=== PATIENT | female | born 1940 | race Caucasian/White ===

== ENCOUNTER 2020-06-27 20:59 | Emergency (ER) | payer OTHER ==
[2020-06-27] MEDS ORDERED: NA CHLORIDE 0.9% 1,000 ML ONE (21:43)
[2020-06-27] MEDS ORDERED: ONDANSETRON 4 MG/2 ML VIAL ONE ×2 (21:43→22:58)
[2020-06-27 22:10] LABS: Absolute Lymphocytes (CBC) 1.1 K/uL (0.7-4.9); Basophils % 0.9 % (0-1.3); Hematocrit 37.8 % (36.0-45.0); MPV 11.1 fL (7.6-11.3); RBC Red Blood Cell Count 4.28 M/uL (3.86-4.86)
[2020-06-27 22:31] LABS: Albumin 3.6 g/dL (3.4-5.0); Bilirubin Direct 0.3 mg/dL (0-0.2); Potassium 4.3 mmol/L (3.5-5.1); Protein, Total 8.9 g/dL (6.4-8.2)
[2020-06-27] MEDS ORDERED: D50W 25 GM/50 ML SYRINGE/VIAL IV ONE (23:13)
[2020-06-28] MEDS ORDERED: CLINDAMYCIN IV 150 MG/ML (4 mL) VIAL ONE ×2 (00:01→00:05)
[2020-06-28] MEDS ORDERED: NA CHLORIDE 0.9% 50 ML IV ONE ×2 (00:01→00:05)
[2020-06-28 00:10] LABS: Urine Blood TRACE (NEG); Urine Glucose NEGATIVE (NEG); Urine Protein NEGATIVE (NEG); Urine pH 6.5 (5.0-7.0)
[2020-06-28 00:30] LABS: Urine Bacteria >50 /HPF (<20); Urine Culture Reflex Order REFLEXED; Urine RBC <5 /HPF (NONE SEEN)
--- NOTE | 2020-06-28 00:35 | EDPHYS ---
Physician Documentation [facility] Name: Radha Kenney Age: 79 yrs Sex: Female : 1940 Arrival Date: 06/27/2020 Time: 21:02 Bed 17 Private MD: ED Physician Jimbo Villanueva HPI: 06/27 22:57 This 79 yrs old Female presents to ER via Wheelchair with complaints of tw4 Nausea/Vomiting/Diarrhea. 22:57 The patient presents to the emergency department with nausea, vomiting. Onset: The tw4 symptoms/episode began/occurred today. Possible causes: unknown. The symptoms are aggravated by nothing. The symptoms are alleviated by nothing. Severity of symptoms: At their worst the symptoms were moderate in the emergency department the symptoms are unchanged. The patient has not experienced similar symptoms in the past. Historical: - Allergies: : trazodone; ea - PMHx: 21:27 Hypertension; ea - Immunization history:: Adult Immunizations up to date. - Social history:: Smoking status: Patient denies any tobacco usage or history of. ROS: 22:57 Constitutional: Negative for fever, chills, and weight loss, Eyes: Negative for injury, tw4 pain, redness, and discharge, Cardiovascular: Negative for chest pain, palpitations, and edema, Respiratory: Negative for shortness of breath, cough, wheezing, and pleuritic chest pain, Back: Negative for injury and pain, MS/Extremity: Negative for injury and deformity, Skin: Negative for injury, rash, and discoloration, Neuro: Negative for headache, weakness, numbness, tingling, and seizure. 22:57 Abdomen/GI: Positive for nausea, vomiting, and diarrhea, nausea, vomiting, diarrhea, Negative for abdominal pain, abdominal cramps, abdominal distension, anorexia, dysphagia, hematemesis, black/tarry stool, rectal pain, rectal bleeding. Exam: 22:57 Constitutional: This is a well developed, well nourished patient who is awake, alert, tw4 and in no acute distress. Head/Face: Normocephalic, atraumatic. Chest/axilla: Normal chest wall appearance and motion. Nontender with no deformity. No lesions are appreciated. Cardiovascular: Regular rate and rhythm with a normal S1 and S2. No gallops, murmurs, or rubs. Normal PMI, no JVD. No pulse deficits. Respiratory: Lungs have equal breath sounds bilaterally, clear to auscultation and percussion. No rales, rhonchi or wheezes noted. No increased work of breathing, no retractions or nasal flaring. 22:57 Back: No spinal tenderness. No costovertebral tenderness. Full range of motion. Skin: Warm, dry with normal turgor. Normal color with no rashes, no lesions, and no evidence of cellulitis. MS/ Extremity: Pulses equal, no cyanosis. Neurovascular intact. Full, normal range of motion. Neuro: Awake and alert, GCS 15, oriented to person, place, time, and situation. Cranial nerves II-XII grossly intact. Motor strength 5/5 in all extremities. Sensory grossly intact. Cerebellar exam normal. Normal gait. 22:57 Abdomen/GI: Inspection: abdomen appears normal, Bowel sounds: diminished, Palpation: moderate abdominal tenderness, in all quadrants. Vital Signs: 21:21 BP 171 / 78; Pulse 66; Resp 19; Temp 97.3; Pulse Ox 100% on 2 lpm NC; Weight 107.5 kg; ea Height 5 ft. (152.40 cm); 22:30 BP 181 / 75; Pulse 63; Resp 19; Pulse Ox 100% ; ea 23:14 BP 158 / 84; Pulse 84; Resp 18; Pulse Ox 99% ; ea 06/28 00:46 BP 169 / 73; Pulse 77; Resp 19; Temp 97.6; Pulse Ox 100% on 2 lpm NC; ea 06/27 21:21 Body Mass Index 46.29 (107.50 kg, 152.40 cm) ea MDM: 06/27 21:21 Patient medically screened. tw4 22:57 Differential diagnosis: Nonspecific abd pain, gastritis, cholecystitis, pancreatitis. tw4 Data reviewed: vital signs, nurses notes. Data interpreted: Pulse oximetry: Interpretation: normal. Counseling: I had a detailed discussion with the patient and/or guardian regarding: the historical points, exam findings, and any diagnostic results supporting the discharge/admit diagnosis, lab results. 06/27 21:26 Order name: Basic Metabolic Panel; Complete Time: 23:35 tw4 06/27 23:44 Interpretation: Normal except: GLUC 67; GFR 60; CA 6.6. tw4 06/27 21:26 Order name: CBC with Diff; Complete Time: 22:34 [facility] 06/27 22:34 Interpretation: Normal except: LYM% 13.0. [facility] 06/27 21:26 Order name: Hepatic Function; Complete Time: 23:35 [facility] 06/27 23:35 Interpretation: Normal except: AST 52; ALK 227; BILID 0.3; TP 8.9; GLOB 5.3; A/G 0.7. [facility] 06/27 21:26 Order name: Lipase; Complete Time: 23:35 [facility] 06/27 23:35 Interpretation: Within normal limits: LIP 268. [facility] 06/27 22:36 Order name: Lactate; Complete Time: 23:35 [facility] 06/27 23:36 Interpretation: Within normal limits: LAC 1.0. [facility] 06/27 23:46 Order name: Urine Microscopic Only [facility] [place] 06/27 21:34 Order name: CT Abd/Pelvis - IV Contrast Only [facility] 06/27 23:46 Order name: Urine Dipstick--Ancillary (enter results) [facility] [place] 06/28 00:32 Order name: Urine Culture [facility] 06/28 00:40 Order name: Glucose, Ancillary Testing [facility] 06/27 21:26 Order name: IV Saline Lock; Complete Time: 22:02 [facility] 06/27 21:26 Order name: Labs collected and sent; Complete Time: 22:02 [facility] 06/27 22:36 Order name: Urine Dipstick-Ancillary (obtain specimen); Complete Time: 23:45 tw4 Administered Medications: 22:02 Drug: Zofran (Ondansetron) 4 mg Route: IVP; Site: right antecubital; ea 22:30 Follow up: Response: No adverse reaction; Nausea is decreased ea 22:02 Drug: NS 0.9% 1000 ml Route: IV; Rate: 1 bolus; Site: right antecubital; ea 23:10 Follow up: Response: No adverse reaction; IV Status: Completed infusion; IV Intake: ea 1000ml 22:49 Drug: Zofran (Ondansetron) 4 mg Route: IVP; Site: right antecubital; ea 23:19 Follow up: Response: No adverse reaction; Nausea is decreased ea 23:14 Drug: D50W 50 ml Route: IVP; Site: right antecubital; ea 06/28 00:29 Follow up: Response: No adverse reaction; Blood sugar is elevated; Blood sugar is ea elevated, 149 06/27 23:59 Drug: Clindamycin 300 mg Route: IVPB; Infused Over: 30 mins; Site: right antecubital; ea 06/28 00:25 Follow up: Response: No adverse reaction; IV Status: Completed infusion; IV Intake: 50mlea 00:44 Drug: Calcium Carbonate 500 mg Route: PO; ea 00:44 Follow up: Response: Medication administered at discharge. ea Disposition: 06/28/20 00:35 Discharged to Home. Impression: Abdominal tenderness, Hypocalcemia, Hypoglycemia, unspecified. - Condition is Stable. - Discharge Instructions: Hypoglycemia, Nausea, Adult, Urinary Tract Infection, Adult, Abdominal Pain, Adult, Clfr-de-Anzb, Hypocalcemia, Adult. - Prescriptions for Zofran 4 mg Oral Tablet - take 1 tablet by ORAL route every 12 hours As needed; 6 tablet. Macrobid 100 mg Oral Capsule - take 1 capsule by ORAL route every 12 hours for 7 days; 14 capsule. - Medication Reconciliation Form, Thank You Letter, Antibiotic Education, Prescription Opioid Use form. - Follow up: Private Physician; When: Upon discharge from the Emergency Department; Reason: Recheck today's complaints, Continuance of care, Re-evaluation by your physician. - Problem is new. - Symptoms have improved. Signatures: Dispatcher [employer] Katie Salas, RN RN Jimbo Womack MD MD tw4 Corrections: (The following items were deleted from the chart) 06/27 23:44 23:35 Normal except: GLUC 67; GFR 60. tw4 tw4 06/28 00:47 00:35 06/28/2020 00:35 Discharged to Home. Impression: Abdominal tenderness; ea Hypocalcemia; Hypoglycemia, unspecified. Condition is Stable. Forms are Medication Reconciliation Form, Thank You Letter, Antibiotic Education, Prescription Opioid Use. Follow up: Private Physician; When: Upon discharge from the Emergency Department; Reason: Recheck today's complaints, Continuance of care, Re-evaluation by your physician. Problem is new. Symptoms have improved. tw4
--- NOTE | 2020-06-28 00:35 | ER ---
Nurse's Notes [facility] Name: Radha Kenney Age: 79 yrs Sex: Female : 1940 Arrival Date: 06/27/2020 Time: 21:02 Bed 17 Private MD: Diagnosis: Abdominal tenderness;Hypocalcemia;Hypoglycemia, unspecified Presentation: 06/27 21:21 Chief complaint: Patient states: Reports she started to have nausea, dry heaving and ea diarrhea. Pt reports she has some abdominal discomfort. Coronavirus screen: At this time, the client does not indicate any symptoms associated with coronavirus-19. Ebola Screen: No symptoms or risks identified at this time. Initial Sepsis Screen: Does the patient meet any 2 criteria? No. Patient's initial sepsis screen is negative. Does the patient have a suspected source of infection? No. Patient's initial sepsis screen is negative. Risk Assessment: Do you want to hurt yourself or someone else? Patient reports no desire to harm self or others. Onset of symptoms was June 27, 2020. 21:21 Method Of Arrival: Wheelchair ea 21:21 Acuity: RADHIKA 3 ea Triage Assessment: :27 General: Appears in no apparent distress. Behavior is appropriate for age. Pain: ea Complains of pain in right upper quadrant and left upper quadrant. Neuro: Level of Consciousness is awake, alert, obeys commands, Oriented to person, place, time, situation. Cardiovascular: Patient's skin is warm and dry. Respiratory: Airway is patent Respiratory effort is even, unlabored, Respiratory pattern is regular, symmetrical. GI: Abdomen is round distended, Reports diarrhea, nausea. Derm: redness noted to luh lower extremities. Historical: - Allergies: :27 trazodone; ea - PMHx: 21:27 Hypertension; ea - Immunization history:: Adult Immunizations up to date. - Social history:: Smoking status: Patient denies any tobacco usage or history of. Screenin:24 Abuse screen: Denies threats or abuse. Nutritional screening: No deficits noted. ea Tuberculosis screening: No symptoms or risk factors identified. Fall Risk None identified. Assessment: 21:27 Reassessment: see triage assessment. ea 22:54 Reassessment: Daughter [id number]. ea 06/28 00:45 Reassessment: Patient and/or family updated on plan of care and expected duration. Pain ea level reassessed. Patient is alert, oriented x 3, equal unlabored respirations, skin warm/dry/pink. Discharge instruction given to patient, verbalized the understanding of instruction. Pt left ED via wheelchair, per ED staff. Pt family awaiting for transportation home. Pt assisted into private vehicle, pt tolerated well. Vital Signs: 06/27 21:21 BP 171 / 78; Pulse 66; Resp 19; Temp 97.3; Pulse Ox 100% on 2 lpm NC; Weight 107.5 kg; ea Height 5 ft. (152.40 cm); 22:30 BP 181 / 75; Pulse 63; Resp 19; Pulse Ox 100% ; ea 23:14 BP 158 / 84; Pulse 84; Resp 18; Pulse Ox 99% ; ea 06/28 00:46 BP 169 / 73; Pulse 77; Resp 19; Temp 97.6; Pulse Ox 100% on 2 lpm NC; ea 06/27 21:21 Body Mass Index 46.29 (107.50 kg, 152.40 cm) ea ED Course: 06/27 21:02 Patient arrived in ED. am2 21:21 Katie Archibald, KEREN is Primary Nurse. ea 21:21 Jimbo Villanueva MD is Attending Physician. tw4 21:24 Triage completed. ea 21:24 Patient has correct armband on for positive identification. Bed in low position. Call ea light in reach. Side rails up X2. 21:24 Arm band placed on right wrist. Patient placed in an exam room, on a stretcher, on ea pulse oximetry. 21:40 Missed attempt(s): 20 gauge in left antecubital area. Bleeding controlled, band aid ds4 applied, catheter tip intact. 21:45 Inserted saline lock: 22 gauge in right antecubital area, using aseptic technique. ea Blood collected. 23:13 CT Abd/Pelvis - IV Contrast Only In Process Unspecified. EDMS 06/28 00:45 No provider procedures requiring assistance completed. IV discontinued, intact, ea bleeding controlled, No redness/swelling at site. Pressure dressing applied. Administered Medications: 06/27 22:02 Drug: Zofran (Ondansetron) 4 mg Route: IVP; Site: right antecubital; ea 22:30 Follow up: Response: No adverse reaction; Nausea is decreased ea 22:02 Drug: NS 0.9% 1000 ml Route: IV; Rate: 1 bolus; Site: right antecubital; ea 23:10 Follow up: Response: No adverse reaction; IV Status: Completed infusion; IV Intake: ea 1000ml 22:49 Drug: Zofran (Ondansetron) 4 mg Route: IVP; Site: right antecubital; ea 23:19 Follow up: Response: No adverse reaction; Nausea is decreased ea 23:14 Drug: D50W 50 ml Route: IVP; Site: right antecubital; ea 06/28 00:29 Follow up: Response: No adverse reaction; Blood sugar is elevated; Blood sugar is ea elevated, 149 06/27 23:59 Drug: Clindamycin 300 mg Route: IVPB; Infused Over: 30 mins; Site: right antecubital; ea 06/28 00:25 Follow up: Response: No adverse reaction; IV Status: Completed infusion; IV Intake: 50mlea 00:44 Drug: Calcium Carbonate 500 mg Route: PO; ea 00:44 Follow up: Response: Medication administered at discharge. ea Intake: 06/27 23:10 IV: 1000ml; Total: 1000ml. ea 06/28 00:25 IV: 50ml; Total: 1050ml. ea Outcome: 00:35 Discharge ordered by . tw4 00:45 Discharged to home via wheelchair, with family. ea 00:45 Condition: stable 00:45 Discharge instructions given to patient, Instructed on discharge instructions, follow up and referral plans. medication usage, Demonstrated understanding of instructions, follow-up care, medications, Prescriptions given X 2. 00:47 Patient left the ED. ea Addendum: 07/01/2020 18:29 Addendum: Culture Results: Positive urine culture. No further action required. Bacteria i w sensitive to prescribed antibiotic. Signatures: Dispatcher [employer] EDKathryn Montes De Oca RN RN iw Swanson, Donovan ds4 Erum Echeverria Elena, RN RN ea Wadley, Terrence, MD MD tw4
[2020-06-28] MEDS ORDERED: CALCIUM CARBONATE 500 MG TAB ONE (00:48)
--- NOTE | 2020-06-28 12:31 | RAD REPORT ---
EXAM DESCRIPTION: CT - Abdomen Pelvis W Contrast - 06/28/2020 5:10 am CLINICAL HISTORY: Abd pain;Nausea / vomiting COMPARISON: None Available. TECHNIQUE: CT of the abdomen and pelvis performed following IV administration of iodinated contras t. Motion artifact. FINDINGS: Lung Bases: Scarring and atelectasis in the visualized lung bases. Motion artifact. Campo ry artery atherosclerosis. Bones: Multilevel endplate spondylosis and facet arthropathy throughout the visualized spine. Mild de generative change of the hips. Abdomen: Liver: The liver has normal size and density. No intrahepatic biliary dilatation. Gallbladder: Prior cholecystectomy. Spleen, Pancreas, and Adrenal Glands: The spleen, pancreas, and adrenal glands are unremarkable. Kidneys: No hydronephrosis or obstructing calculus. Mild renal cortical atrophy. Vasculature: Aortoiliac atherosclerosis. IVC is unremarkable. The portal vein is patent. The proxim al visceral and renal arteries are patent. Stomach: The stomach and duodenum have normal course. Other: No free intraperitoneal air. No free fluid or lymphadenopathy. Small fat-containing umbili chrissie hernia. Pelvis: Bladder: Urinary bladder is unremarkable. Bowel: No dilated loops of large or small bowel. Scattered diverticula of the colon. Appendix: Appendicolith within an otherwise normal-appearing appendix Pelvis: Uterus is not enlarged. 3.6 cm left ovarian cyst. IMPRESSION: 1. No acute inflammatory or obstructive process identified. 2. Diverticulosis without evidence of acute diverticulitis. 3. 3.6 cm benign appearing left ovarian cyst. Recommend prompt follow-up with pelvic US. Reference: J Am Nicole Radiol 2013;10:675-681 This exam was performed according to our departmental dose-optimization program, which includes autom ated exposure control, adjustment of the mA and/or kV according to patient size and/or use of iterati ve reconstruction technique. Electronically signed by: Estrada Evans 06/27/2020 11:24 PM CDT Due to temporary technical issues with the PACS/Fluency reporting system, reports are being signed by the in house radiologist without review as a courtesy to ensure prompt reporting. The interpreting r adiologist is fully responsible for the content of the report.
[2020-06-28 20:11] VITALS: BP 169/73; TEMP 97.6; O2SAT 100
== END 2020-06-28 00:47 | disposition home or self-care (01) ==
LOC: ER 20:59
DX: E83.51 Hypocalcemia (principal); E16.2 Hypoglycemia, unspecified; I10 Essential (primary) hypertension; Z88.5 Allergy status to narcotic agent
CPT/HCPCS: 96365; 96361; 87088; 85025; 87086; 80048; 36415; 82947; 80076; 83605; 87077; 87186; 83690; 74177; 96375; 99284; Q9967; J7030; J2405 ×2; 81003; 81015

== ENCOUNTER 2020-07-04 19:47 | Emergency (ER) | payer OTHER ==
[2020-07-04] MEDS ORDERED: NA CHLORIDE 0.9% 500 ML ONE (21:43)
[2020-07-04] MEDS ORDERED: ONDANSETRON 4 MG/2 ML VIAL ONE (21:43)
[2020-07-04 22:48] LABS: Albumin 3.3 g/dL (3.4-5.0); Bilirubin Direct 0.2 mg/dL (0-0.2); Bilirubin Total 0.9 mg/dL (0.2-1.0); Potassium 5.1 mmol/L (3.5-5.1); Protein, Total 8.6 g/dL (6.4-8.2)
--- NOTE | 2020-07-05 00:40 | ER ---
Nurse's Notes [facility] Name: Radha Kenney Age: 79 yrs Sex: Female : 1940 Arrival Date: 07/04/2020 Time: 19:51 Bed 14 Private MD: Diagnosis: Diarrhea, unspecified;Hypocalcemia;Adverse effect of other systemic antibiotics Presentation: 07/04 20:06 Chief complaint: Patient states: Abdominal pain with N/V/D for 2 days. No fever. ll1 Coronavirus screen: Client denies travel out of the [place] in the last 14 days. At this time, the client does not indicate any symptoms associated with coronavirus-19. Ebola Screen: Patient denies travel to an Ebola-affected area in the 21 days before illness onset. Initial Sepsis Screen: Does the patient meet any 2 criteria?. Risk Assessment: Do you want to hurt yourself or someone else? Patient reports no desire to harm self or others. Onset of symptoms was July 03, 2020. 20:06 Method Of Arrival: Wheelchair ll1 20:06 Acuity: RADHIKA 3 ll1 21:00 Initial Sepsis Screen: Does the patient have a suspected source of infection? No. wh Patient's initial sepsis screen is negative. Triage Assessment: 20:06 General: Appears uncomfortable, Behavior is calm, cooperative. Pain: Complains of pain ll1 in abdomen Quality of pain is described as aching, crampy, Pain began 2-3 days ago. EENT: No deficits noted. Neuro: No deficits noted. Cardiovascular: No deficits noted. Respiratory: Denies shortness of breath Wears O2 2L NC all the time for COPD. GI: Abdomen is round Bowel sounds present X 4 quads. Reports lower abdominal pain, upper abdominal pain, cramping, diarrhea, nausea, vomiting. Historical: - Allergies: 20:10 Trazodone; ll1 - PMHx: 20:10 Hypertension; COPD; High Cholesterol; ll1 - PSHx: 20:10 R shoulder replacement/r arm fracture; ll1 - Immunization history:: Flu vaccine is up to date. - Social history:: Smoking status: Patient denies any tobacco usage or history of. Patient/guardian denies using alcohol, street drugs. - Family history:: not pertinent. - Hospitalizations: : No recent hospitalization is reported. Screenin:00 Abuse screen: Denies threats or abuse. Denies injuries from another. Nutritional wh screening: No deficits noted. Tuberculosis screening: No symptoms or risk factors identified. Fall Risk None identified. Assessment: 21:05 General: Appears in no apparent distress. Behavior is calm, cooperative, appropriate wh for age. Pain: Denies pain. Neuro: Level of Consciousness is awake, alert, obeys commands, Oriented to person, place, time, situation, Appropriate for age. Cardiovascular: Heart tones S1 S2. Respiratory: Airway is patent Respiratory effort is even, unlabored, Respiratory pattern is regular, symmetrical, Breath sounds are diminished bilaterally. GI: Abdomen is round non-distended, Bowel sounds present X 4 quads. Abd is soft and non tender X 4 quads. Reports nausea, vomiting. : No signs and/or symptoms were reported regarding the genitourinary system. EENT: No signs and/or symptoms were reported regarding the EENT system. Derm: Skin is intact, Skin is pink, warm \T\ dry. Musculoskeletal: Circulation, motion, and sensation intact. 21:30 Reassessment: Unable to start Iv Charge Nurse notified at bedside attempting Iv wh Insertion. 22:25 Reassessment: hand former at bedside attempting Iv insertion. 22:30 Reassessment: Patient appears in no apparent distress at this time. No changes from previously documented assessment. Patient and/or family updated on plan of care and expected duration. Pain level reassessed. Patient is alert, oriented x 3, equal unlabored respirations, skin warm/dry/pink. 07/05 00:15 Reassessment: Patient appears in no apparent distress at this time. Patient and/or family updated on plan of care and expected duration. Pain level reassessed. Patient is alert, oriented x 3, equal unlabored respirations, skin warm/dry/pink. Patient states feeling better. Patient states symptoms have improved. Vital Signs: 07/04 20:06 BP 125 / 54; Pulse 63; Resp 20; Temp 98.0; Pulse Ox 92% on 2 lpm NC; Weight 105.23 kg; ll1 Height 5 ft. 0 in. (152.40 cm); Pain 7/10; 21:30 BP 153 / 74; Pulse 78; Resp 20; Pulse Ox 95% on 2 lpm NC; wh 23:00 BP 142 / 66; Pulse 69; Resp 20; Pulse Ox 95% on 2 lpm NC; 07/05 00:30 BP 156 / 66; Pulse 75; Resp 18; Pulse Ox 97% on 2 lpm NC; 07/04 20:06 Body Mass Index 45.31 (105.23 kg, 152.40 cm) ll1 ED Course: 07/04 19:51 Patient arrived in ED. cf2 20:06 Arm band placed on. ll1 20:09 Triage completed. 1 20:46 Pedro Barba MD is Attending Physician. rn 20:47 Reji Valiente is Primary Nurse. 21:00 Patient has correct armband on for positive identification. Placed in gown. Bed in low wh position. Call light in reach. Side rails up X 1. Pulse ox on. NIBP on. 21:25 Missed attempt(s): 22 gauge in right antecubital area. 22:25 Inserted saline lock: 22 gauge in right upper arm, using aseptic technique. By House [facility] [place]. 23:54 CT Abd/Pelvis - IV Contrast Only In Process Unspecified. EDMS 07/05 01:00 No provider procedures requiring assistance completed. IV discontinued, intact, wh bleeding controlled, No redness/swelling at site. Administered Medications: 07/04 23:00 Drug: Zofran (Ondansetron) 4 mg {Note: RIght shoulder.} Route: IVP; Site: Other; 07/05 01:06 Follow up: Response: No adverse reaction; Nausea is decreased 07/04 23:00 Drug: NS 0.9% 500 ml {Note: Right Shoulder.} Route: IV; Rate: bolus; Site: Other; 07/05 01:06 Follow up: Response: No adverse reaction; IV Status: Completed infusion 00:27 Drug: Calcium Gluconate 1 grams {Note: RIght SHoulder.} Route: IVPB; Infused Over: 60 wh mins; Site: Other; 01:05 Follow up: Response: No adverse reaction; IV Status: Completed infusion 01:05 Not Given (Patient Refused): LoMOTIL 2 tabs PO once wh Outcome: 00:40 Discharge ordered by . rn 01:00 Discharged to home via wheelchair, with family. 01:00 Condition: stable 01:00 Discharge instructions given to patient, family, Instructed on discharge instructions, follow up and referral plans. medication usage, POC Demonstrated understanding of instructions, follow-up care, medications, POC Prescriptions given X 2. 01:08 Patient left the ED. Signatures: Dispatcher [employer] EDMS Pedro Barba MD MD rn Reji Valiente Wagner Jolenedevika cf2 Cj Pagan RN RN ll1 Corrections: (The following items were deleted from the chart) 07/04 20:11 20:06 BP 125 / 54; Pulse 63bpm; Resp 20bpm; Pulse Ox 88%; Temp 98.0F; 105.23 kg; Height ll1 5 ft. 0 in.; BMI: 45.3; Pain 7/10; ll1 20:26 20:24 General: Appears uncomfortable, Behavior is calm, cooperative, ll1 ll1 20:26 20:24 Pain: Complains of pain in abdomen Quality of pain is described as aching, ll1 crampy, Pain began 2-3 days ago. ll1 20:26 20:24 EENT: No deficits noted. ll1 ll1 20:26 20:24 Neuro: No deficits noted. ll1 ll1 20:26 20:24 Cardiovascular: No deficits noted. ll1 ll1 20:26 20:24 Respiratory: Denies shortness of breath Wears O2 2L NC all the time for COPD ll1 ll1 20:26 20:24 GI: Abdomen is round Bowel sounds present X 4 quads. Reports lower abdominal ll1 pain, upper abdominal pain, cramping, diarrhea, nausea, vomiting, ll1 20:34 20:11 Arm band placed on Patient placed in an exam room, on a stretcher, ll1 ll1
--- NOTE | 2020-07-05 00:40 | EDPHYS ---
Physician Documentation [facility] Name: Radha Kenney Age: 79 yrs Sex: Female : 1940 Arrival Date: 07/04/2020 Time: 19:51 Bed 14 Private MD: ED Physician Pedro Barba HPI: 07/04 21:17 This 79 yrs old Female presents to ER via Wheelchair with complaints of rn Abdominal Pain. 21:17 The patient presents to the emergency department with nausea, vomiting, diarrhea, rn abdominal pain. Onset: The symptoms/episode began/occurred 2 day(s) ago. Possible causes: antibiotics. The symptoms are aggravated by nothing. The symptoms are alleviated by nothing. Severity of symptoms: At their worst the symptoms were moderate in the emergency department the symptoms are unchanged. The patient has not experienced similar symptoms in the past. Reports seen here recently for leg infection, given 2 abx, reports must not be agreeing with her as she is now experiencing nausea/vomiting/diarrhea/abd cramping. Reports leg infection is drying up and appears better. No fever. No blood in stool. . Historical: - Allergies: 20:10 Trazodone; ll1 - PMHx: 20:10 Hypertension; COPD; High Cholesterol; ll1 - PSHx: 20:10 R shoulder replacement/r arm fracture; ll1 - Immunization history:: Flu vaccine is up to date. - Social history:: Smoking status: Patient denies any tobacco usage or history of. Patient/guardian denies using alcohol, street drugs. - Family history:: not pertinent. - Hospitalizations: : No recent hospitalization is reported. ROS: 21:17 Constitutional: Negative for fever, chills, and weight loss, Eyes: Negative for injury, rn pain, redness, and discharge, Neck: Negative for injury, pain, and swelling, Cardiovascular: Negative for chest pain, palpitations, and edema, Respiratory: Negative for shortness of breath, cough, wheezing, and pleuritic chest pain, Abdomen/GI: Negative for constipation Back: Negative for injury and pain, : Negative for injury, bleeding, discharge, and swelling, MS/Extremity: Negative for injury and deformity, Skin: Negative for injury, rash, and discoloration, Neuro: Negative for headache, numbness, tingling, and seizure. Exam: 21:17 Constitutional: Overweight, no acute distress Head/Face: Normocephalic, atraumatic. joinery patternmaker: dry MM Cardiovascular: Regular rate and rhythm. No pulse deficits. Respiratory: No increased work of breathing, no retractions or nasal flaring. Abdomen/GI: soft, mild periumbilical tenderness, no rebound Skin: Warm, dry MS/ Extremity: Pulses equal, no cyanosis. Neuro: Awake and alert, GCS 15 Vital Signs: 20:06 BP 125 / 54; Pulse 63; Resp 20; Temp 98.0; Pulse Ox 92% on 2 lpm NC; Weight 105.23 kg; ll1 Height 5 ft. 0 in. (152.40 cm); Pain 7/10; 21:30 BP 153 / 74; Pulse 78; Resp 20; Pulse Ox 95% on 2 lpm NC; wh 23:00 BP 142 / 66; Pulse 69; Resp 20; Pulse Ox 95% on 2 lpm NC; wh 07/05 00:30 BP 156 / 66; Pulse 75; Resp 18; Pulse Ox 97% on 2 lpm NC; wh 07/04 20:06 Body Mass Index 45.31 (105.23 kg, 152.40 cm) ll1 MDM: 07/04 20:46 Patient medically screened. rn 07/05 00:37 Differential diagnosis: Nonspecific abd pain, appendicitis, diverticulitis, viral rn gastroenteritis, gastroenteritis, medication reaction. Data reviewed: vital signs, nurses notes, lab test result(s), radiologic studies, CT scan, and as a result, I will discharge patient. Counseling: I had a detailed discussion with the patient and/or guardian regarding: the historical points, exam findings, and any diagnostic results supporting the discharge/admit diagnosis, lab results, radiology results, the need for outpatient follow up, to return to the emergency department if symptoms worsen or persist or if there are any questions or concerns that arise at home. Response to treatment: the patient's symptoms have markedly improved after treatment, and as a result, I will discharge patient. Special discussion: Based on the patient's Hx, exam, and Dx evaluation, there is no indication for emergent surgery or inpatient Tx. It is understood by the patient/guardian that if the Sx's persist or worsen they need to return immediately for re-evaluation. I discussed with the patient/guardian in detail that at this point there is no indication for admission to the hospital. It is understood, however, that if the symptoms persist or worsen the patient needs to return immediately for re-evaluation. ED course: Pt states ready to go home, no acute findings on CT scan, most likely either viral or 2/2 abx, will dc home with symptomatic treatment, and return precautions. . 07/04 20:47 Order name: Basic Metabolic Panel; Complete Time: 22:55 07/04 20:47 Order name: Hepatic Function; Complete Time: 22:55 07/04 20:47 Order name: Lipase; Complete Time: 22:55 07/04 20:47 Order name: Urine Microscopic Only 07/05 00:38 Order name: Urine Dipstick--Ancillary (enter results) [facility] 07/04 20:47 Order name: IV Saline Lock; Complete Time: 22:57 07/04 20:47 Order name: Labs collected and sent; Complete Time: 22:57 07/04 20:47 Order name: CT Abd/Pelvis - IV Contrast Only 07/05 00:38 Order name: Urine Dipstick-Ancillary [facility] 07/04 20:47 Order name: Urine Dipstick-Ancillary (obtain specimen); Complete Time: 00:38 rn Administered Medications: 07/04 23:00 Drug: Zofran (Ondansetron) 4 mg {Note: RIght shoulder.} Route: IVP; Site: Other; 07/05 01:06 Follow up: Response: No adverse reaction; Nausea is decreased 07/04 23:00 Drug: NS 0.9% 500 ml {Note: Right Shoulder.} Route: IV; Rate: bolus; Site: Other; 07/05 01:06 Follow up: Response: No adverse reaction; IV Status: Completed infusion 00:27 Drug: Calcium Gluconate 1 grams {Note: RIght SHoulder.} Route: IVPB; Infused Over: 60 wh mins; Site: Other; 01:05 Follow up: Response: No adverse reaction; IV Status: Completed infusion 01:05 Not Given (Patient Refused): LoMOTIL 2 tabs PO once Disposition: 07/05/20 00:40 Discharged to Home. Impression: Diarrhea, unspecified, Hypocalcemia, Adverse effect of other systemic antibiotics. - Condition is Stable. - Discharge Instructions: Diarrhea, Adult, Hypocalcemia, Adult. - Prescriptions for Zofran ODT 4 mg Oral tablet,disintegrating - place 1 tablet by TRANSLINGUAL route every 8 hours As needed; 15 tablet. - Medication Reconciliation Form, Thank You Letter, Antibiotic Education, Prescription Opioid Use form. - Follow up: Private Physician; When: 2 - 3 days; Reason: Recheck today's complaints, Re-evaluation by your physician. - Problem is new. - Symptoms have improved. Signatures: Dispatcher [employer] EDMD Tyra Caruso, HOUSE WORKER-C HOUSE WORKER-Ckb Pedro Barba MD MD rn Tawanast. [facility] centerReji Lynsay, RN RN ll1 Corrections: (The following items were deleted from the chart) 01:08 00:40 07/05/2020 00:40 Discharged to Home. Impression: Diarrhea, unspecified; wh Hypocalcemia; Adverse effect of other systemic antibiotics. Condition is Stable. Forms are Medication Reconciliation Form, Thank You Letter, Antibiotic Education, Prescription Opioid Use. Follow up: Private Physician; When: 2 - 3 days; Reason: Recheck today's complaints, Re-evaluation by your physician. Problem is new. Symptoms have improved. rn
[2020-07-05] MEDS ORDERED: CALCIUM GLUCONATE 1 GM IVPB 1 GM/50 ML BAG IV ONE (00:50)
[2020-07-05 01:07] LABS: Urine Bacteria <20 /HPF (<20); Urine Culture Reflex Order NOT NEEDED; Urine RBC NONE SEEN /HPF (NONE SEEN)
[2020-07-05 01:09] LABS: Urine Blood TRACE (NEG); Urine Glucose NEGATIVE (NEG); Urine Protein 1+ (NEG)
[2020-07-05 01:18] VITALS: BP 125/54; TEMP 98; O2SAT 92
--- NOTE | 2020-07-05 13:25 | RAD REPORT ---
EXAM DESCRIPTION: CT - Abdomen Pelvis W Contrast - 07/05/2020 4:18 am COMPARISON: CT abdomen pelvis June 27, 2020 CLINICAL HISTORY: Abdominal pain TECHNIQUE: Multiple helical axial images were obtained through the abdomen and pelvis using intraven ous contrast. Coronal and sagittal reformatted images were obtained. All CT scans at this facility use dose modulation, iterative reconstruction, and/or weight-based dosi ng when appropriate to reduce radiation dose to as low as reasonably achievable. FINDINGS: Lung bases: Heart appears enlarged. There is mild dependent atelectasis. Liver: Homogenous attenuation is noted. Subcentimeter hypodensity in the right hepatic lobe is presen t too small to characterize. Gallbladder/biliary: Gallbladder is surgically absent. There is nonspecific mild prominence of the co mmon bile duct which can be seen postcholecystectomy. Pancreas: Atrophic changes noted. No evidence of ductal enlargement. Spleen: Appears unremarkable. No splenomegaly. Adrenals: Unremarkable. Kidneys and ureters: No evidence of hydronephrosis. Normal enhancement. There is a 2.6 cm hypodense cyst projecting from the inferior pole of the right kidney. A few additional smaller cysts in both k idneys are present. Bladder: Unremarkable. Pelvic organs: A 3.6 cm hypodense cyst in the left ovary is present. Bowel: A few colonic diverticula are present. No evidence of bowel obstruction. No bowel wall thick ening. Appendix appears unremarkable. Vasculature: Atherosclerosis of the abdominal and pelvic vasculature is noted. Peritoneum: No free air. No significant free fluid. Lymph nodes: Unremarkable. Soft tissues: Small fat-containing umbilical hernia is present. Bones: Degenerative changes of the spine noted. There are a few old rib fractures bilaterally. IMPRESSION: 1. No evidence for an acute process within the abdomen or pelvis. 2. Redemonstration of a 3.6 cm left ovarian cyst, nonemergent follow-up ultrasound recommended. Electronically signed by: Prince Hidalgo MD 07/05/2020 12:25 AM CDT Due to temporary technical issues with the PACS/Fluency reporting system, reports are being signed by the in house radiologist without review as a courtesy to ensure prompt reporting. The interpreting r adiologist is fully responsible for the content of the report.
== END 2020-07-05 01:08 | disposition home or self-care (01) ==
LOC: ER 19:47
DX: E83.51 Hypocalcemia (principal); T36.8X5A Adverse effect of other systemic antibiotics, initial encounter; I10 Essential (primary) hypertension; Z88.5 Allergy status to narcotic agent
CPT/HCPCS: 96365; 96361; 80048; 80076; 83690; 74177; 96375; 99284; Q9967; J0610; J7040; J2405; 81003; 81015

== ENCOUNTER 2020-07-05 09:11 | Observation (INO) | payer OTHER ==
[2020-07-05 09:57] LABS: Absolute Lymphocytes (CBC) 0.6 K/uL (0.7-4.9); Basophils % 0.7 % (0-1.3); Hematocrit 33.8 % (36.0-45.0); Lymphocytes % 6.8 % (15.3-44.8); MPV 10.9 fL (7.6-11.3); RBC Red Blood Cell Count 3.84 M/uL (3.86-4.86)
[2020-07-05 09:58] LABS: Protime INR 1.08
[2020-07-05 10:26] LABS: Blood Morphology Comment NOTED (NOT SEEN); Platelet Estimate ADEQ; Stomatocytes 1+; White Blood Cell Scan OK (OK)
[2020-07-05 10:33] LABS: ALT/SGPT 33 U/L (12-78); AST/SGOT 36 U/L (15-37); Albumin 3.1 g/dL (3.4-5.0); Alkaline Phosphatase 167 U/L (45-117); BUN Blood Urea Nitrogen 18 mg/dL (7-18); Bicarbonate 33 mmol/L (21-32); Bilirubin Direct 0.3 mg/dL (0-0.2); Bilirubin Total 0.9 mg/dL (0.2-1.0); Glucose Level 106 mg/dL (74-106); Magnesium 2.3 mg/dL (1.8-2.4); NT PRO-BNP 3713 pg/mL (<450); Potassium 5.1 mmol/L (3.5-5.1); Protein, Total 8.2 g/dL (6.4-8.2); Sodium Level 136 mmol/L (136-145); Troponin (Emerg Dept Use Only) < 0.02 ng/mL (0.0-0.045)
--- NOTE | 2020-07-05 10:45 | RAD REPORT ---
EXAM DESCRIPTION: Bety Single View07/05/2020 10:03 am CLINICAL HISTORY: Shortness of breath COMPARISON: none FINDINGS: [id number] bilateral pulmonary opacities The heart is moderately enlarged IMPRESSION: These findings likely indicate CHF
[2020-07-05] MEDS ORDERED: FUROSEMIDE 40 MG/4 ML VIAL ONE ×3 (11:36→15:25)
--- NOTE | 2020-07-05 12:50 | RAD REPORT ---
EXAM DESCRIPTION: CT - Head Brain Wo Cont - 07/05/2020 12:43 pm CLINICAL HISTORY: MENTAL STATUS CHANGE Fall, trauma, head injury COMPARISON: Abdomen Pelvis W Contrast dated 06/27/2020; Abdomen Pelvis W Contrast dated 07/04/2020 TECHNIQUE: All CT scans are performed using dose optimization technique as appropriate and may inclu de automated exposure control or mA/KV adjustment according to patient size. FINDINGS: No intracranial hemorrhage, hydrocephalus or extra-axial fluid collection.9 mm area of dim inished density is seen right basal gangliar region compatible with old infarct.No areas of brain niurka ma or evidence of midline shift. The paranasal sinuses and mastoids are clear. The calvarium is intact. IMPRESSION: No acute intracranial abnormality.
[2020-07-05 13:21] LABS: Urine Blood TRACE (NEG); Urine Glucose NEGATIVE (NEG); Urine Protein 1+ (NEG); Urine pH 5.5 (5.0-7.0)
--- NOTE | 2020-07-05 14:16 | ER ---
Nurse's Notes [facility] Name: Radha Kenney Age: 79 yrs Sex: Female : 1940 Arrival Date: 07/05/2020 Time: : Bed 19 Private MD: Diagnosis: Hypoxia;Unspecified combined systolic (congestive) and diastolic (congestive) heart failure Presentation: 07/05 09:22 Chief complaint: Patient states: "I was just walking fast and fell twice this morning". aa5 Pt denies injuries, denies pain, denies LOC. Pt states "I just feel weak and haven't really been able to sleep because I am staying with my daughter and there is like 9 people in the house because we all came from [place] because of the [place]". Pt reports baseline SOB. 09: Coronavirus screen: Client denies travel out of the [place] in the last 14 days. At this aa5 time, the client does not indicate any symptoms associated with coronavirus-19. Ebola Screen: Patient negative for fever greater than or equal to 101.5 degrees Fahrenheit, and additional compatible Ebola Virus Disease symptoms. Initial Sepsis Screen: Does the patient meet any 2 criteria? No. Patient's initial sepsis screen is negative. Does the patient have a suspected source of infection? No. Patient's initial sepsis screen is negative. Risk Assessment: Do you want to hurt yourself or someone else? Patient reports no desire to harm self or others. Onset of symptoms was July 05, 2020. 09: Acuity: RADHIKA 3 aa5 09:22 Method Of Arrival: EMS: [facility] aa5 09:22 Care prior to arrival: Glucose check: 112 Oxygen administered. via nasal cannula, EMS aa5 reports O2 sat of 88% per NC at 2 L. Historical: - Allergies: 09:27 Trazodone; aa5 09:27 Sensitive to narcotics (makes her drowsy); aa5 - Home Meds: 15:28 Lasix 20 mg Oral tab 1 tab once daily [Active]; simvastatin 40 mg Oral tab 1 tab once iw daily [Active]; gabapentin 300 mg oral cap 2 caps nightly [Active]; metoprolol tartrate 50 mg Oral tab 1 tab 2 times per day [Active]; levothyroxine 150 mcg tab 1 tab once daily [Active]; montelukast 10 mg oral tab 1 tab once daily [Active]; lorazepam 0.5 mg Oral tab 1 tab 2 times per day [Active]; - PMHx: 09:27 COPD; High Cholesterol; Hypertension; CHF; Thyroid Cancer; Home O2 at 2 L NC; aa5 - PSHx: 09:27 R shoulder replacement/r arm fracture; Thyroidectomy; Appendectomy; Cholecystectomy; aa5 - Immunization history:: Adult Immunizations unknown. - Social history:: Smoking status: Patient denies any tobacco usage or history of. Screenin:00 Abuse screen: Denies threats or abuse. Nutritional screening: No deficits noted. aa5 Tuberculosis screening: No symptoms or risk factors identified. Fall Risk Fall in past 12 months (25 points). IV access (20 points). Total Rubi Fall Scale indicates High Risk Score (45 or more points). Fall prevention measures have been instituted. Side Rails Up X 2 Placed Close to Nursing Station. Assessment: 09:25 General: Appears comfortable, Behavior is calm, cooperative. Pain: Denies pain. Neuro: aa5 Level of Consciousness is awake, alert, obeys commands, Oriented to person, place, time, situation, Holistic Specialist are equal bilaterally Moves all extremities. Speech is normal, Facial symmetry appears normal, Pupils are PERRLA, Reports generalized weakness . Cardiovascular: Heart tones S1 S2 present Edema noted to luh lower legs, luh lower legs red with rash that is vesicular noted. Rhythm is regular. Respiratory: Airway is patent Respiratory effort is even, Respiratory pattern is regular, symmetrical, tachypnea Mild SOB noted. GI: Abdomen is round non-distended, Abd is soft and non tender X 4 quads. : No signs and/or symptoms were reported regarding the genitourinary system. EENT: No signs and/or symptoms were reported regarding the EENT system. Derm: Skin is pink, warm \\T\\ dry. Musculoskeletal: Range of motion: intact in all extremities. 10:30 Reassessment: Patient is alert, oriented x 3, equal unlabored respirations, skin aa5 warm/dry/pink. Patient denies pain at this time. Pt sitting up in bed, states no complaints at this time. . 11:30 Reassessment: Pt drowsy but easily awakens to verbal stimuli. Pt currently resting in aa5 bed with eyes closed. . 11:55 Reassessment: Spoke to pt's daughter over the phone with pt's consent. Pt's daughter aa5 reports confusion that began this morning, pt's daughter states "she was speaking out of her mind today and calling out her mother's name and stuff like that and she also said that she was given Demerol last night when she was seen in the ER". Pt's chart was reviewed from last night and pt was not given Demerol in ER last night. Pt's daughter reports pt may be taking hydrocodone and would like for pt to be tested for drugs. . 12:00 Reassessment: Pt assisted by Micheline Collazo RN to bedside commode, pt tolerated poorly. aa5 Pt unsteady and weak to bedside commode, O2 sat 80% via 2 L at this time, RR 32, and increased SOB noted, provided was notified. Pt helped back to bed by and Micheline. O2 sat now 91% via 2 L NC, and RR 26 now sitting up in bed. . 13:00 Reassessment: Pt given lunch tray, pt tolerating well. . aa5 13:00 Respiratory: Airway is patent Respiratory effort is even, Respiratory pattern is aa5 tachypnea. 13:10 Reassessment: UDS will be delayed due to instrument being down at this time as reported aa5 by Li golf course laborer. . 14:30 Reassessment: Pt now resting in bed with eyes closed, respirations is even and aa5 unlabored, skin is pink/warm/dry. Pt drowsy but easy to awaken to verbal stimuli. Awaiting room assignment. . 15:34 Reassessment: attempt to call report, nurse busy, will call back. iw Vital Signs: 09:22 BP 150 / 79; Pulse 66; Resp 24 S; Temp 98.3(O); Pulse Ox 94% on 2 lpm NC; Pain 0/10; aa5 11:33 BP 130 / 83; Pulse 71; Resp 22; Pulse Ox 96% on 2 lpm NC; aa5 11:55 BP 145 / 54; Pulse 78; Resp 24 S; Temp 98.2(O); Pulse Ox 93% on 2 lpm NC; aa5 13:00 BP 138 / 82; Pulse 72; Resp 24 S; Pulse Ox 95% on 2 lpm NC; aa5 14:00 BP 132 / 80; Pulse 72; Resp 22 S; Temp 98.0(O); Pulse Ox 94% on 2 lpm NC; aa5 ED Course: 09:22 Patient arrived in ED. aa5 09:22 Arm band placed on Patient placed in an exam room, on a stretcher. aa5 09:25 Triage completed. aa5 09:26 [facility] Turk [facility] pm1 09:26 John Paul Somers MD is Attending Physician. pm1 09:40 Missed attempt(s): 20 gauge in right antecubital area. Bleeding controlled, band aid aa5 applied, catheter tip intact. 09:45 Initial lab(s) drawn, by mn, sent to lab. Inserted saline lock: 22 gauge in right hand, aa5 using aseptic technique. Blood collected. 09:47 Patient has correct armband on for positive identification. Bed in low position. Call [facility] light in reach. Side rails up X2. Warm blanket given. monitoring manager on. Pulse ox on. NIBP on. 09:47 EKG done, by ED staff, reviewed by Shawn Turk NP. [facility] 10:03 XRAY Chest (1 view) In Process Unspecified. EDMS 10:18 Montse Granger, RN is Primary Nurse. [facility] 12:44 CT Head Brain wo Cont In Process Unspecified. EDUT 14:16 Pankaj Herrmann DO is Hospitalizing Provider. pm1 16:21 No provider procedures requiring assistance completed. Patient admitted, IV remains in iw place. Administered Medications: 11:41 Drug: Lasix 40 mg Route: IVP; Site: right hand; aa5 11:50 Follow up: Response: No adverse reaction aa5 15:19 Drug: Lasix 40 mg Route: IVP; Site: right hand; iw Outcome: 14:16 Decision to Hospitalize by Provider. pm1 16:20 Admitted to Med/surg accompanied by tech, via stretcher, with oxygen, with chart, iw Report called to KEREN Mendez 16:20 Condition: good 16:20 Discharge instructions given to patient, Instructed on the need for admit. 16:21 Patient left the ED. iw Signatures: Dispatcher [employer] EDMS Kathryn Najera RN RN Montse Granger RN RN aa5 Shawn Turk NP [employer] FARMWORKER pm1 Maureen Uribe RN RN tw2 Miracle Chun 5 Corrections: (The following items were deleted from the chart) 09:28 09:22 Chief complaint: Patient states: "I was just walking fast and fell twice this aa5 morning". Pt denies injuries, denies pain, denies LOC. Pt states "I just feel weak and haven't really been able to sleep because I am staying with my daughter and there is like 9 people in the house because we all came from [place] because of the [place]". aa5 19:33 13:00 Reassessment: Pt given lunch tray, pt tolerating well. . aa5 aa5 :33 14:00 Reassessment: Pt now resting in bed with eyes closed, respirations is even and aa5 unlabored, skin is pink/warm/dry. Pt drowsy but easy to awaken to verbal stimuli. Awaiting room assignment. . aa5 19:34 10:30 Reassessment: Pt drowsy but easily awakens to verbal stimuli. Pt currently aa5 resting in bed with eyes closed. . aa5 19:36 11:33 BP 130 / 83; Pulse 71bpm; Resp 20bpm; Pulse Ox 96% RA; tw2 aa5
--- NOTE | 2020-07-05 14:17 | EDPHYS ---
Physician Documentation [facility] Name: Radha Kenney Age: 79 yrs Sex: Female : 1940 Arrival Date: 07/05/2020 Time: 09: Bed 19 Private MD: ED Physician John Paul Somers HPI: 07/05 12:16 This 79 yrs old Female presents to ER via EMS with complaints of Fall Injury. pm1 12:16 Details of fall: The patient fell from an upright position, while walking. Onset: The pm1 symptoms/episode began/occurred today. Associated injuries: The patient sustained no obvious injury. The patient has not recently seen a physician, out of town. Patient presenting to the ER with complaints of 2 falls today. Patient denies any pain. No headache, head injury, neck pain, or LOC. According to her daughter the patient has been talking to people that are not present or are . Patient denies shortness of breath and chest pain. Historical: - Allergies: : Trazodone; aa5 09: Sensitive to narcotics (makes her drowsy); aa5 - Home Meds: 15:28 Lasix 20 mg Oral tab 1 tab once daily [Active]; simvastatin 40 mg Oral tab 1 tab once iw daily [Active]; gabapentin 300 mg oral cap 2 caps nightly [Active]; metoprolol tartrate 50 mg Oral tab 1 tab 2 times per day [Active]; levothyroxine 150 mcg tab 1 tab once daily [Active]; montelukast 10 mg oral tab 1 tab once daily [Active]; lorazepam 0.5 mg Oral tab 1 tab 2 times per day [Active]; - PMHx: : COPD; High Cholesterol; Hypertension; CHF; Thyroid Cancer; Home O2 at 2 L NC; aa5 - PSHx: : R shoulder replacement/r arm fracture; Thyroidectomy; Appendectomy; Cholecystectomy; aa5 - Immunization history:: Adult Immunizations unknown. - Social history:: Smoking status: Patient denies any tobacco usage or history of. ROS: 12:16 Constitutional: Negative for fever, chills, and weight loss, Neck: Negative for injury, pm1 pain, and swelling, Cardiovascular: Negative for chest pain, palpitations, and edema. 12:16 Abdomen/GI: Negative for abdominal pain, nausea, vomiting, diarrhea, and constipation, Back: Negative for injury and pain, MS/Extremity: Negative for injury and deformity, Skin: Negative for injury, rash, and discoloration, Neuro: Negative for headache, weakness, numbness, tingling, and seizure. 12:16 Respiratory: Positive for Baseline SOB, Negative for cough. Exam: 12:16 Constitutional: This is a well developed, well nourished patient who is awake, alert, pm1 and in no acute distress. Head/Face: Normocephalic, atraumatic. 12:16 Skin: Warm, dry with normal turgor. Normal color with no rashes, no lesions, and no evidence of cellulitis. MS/ Extremity: Pulses equal, no cyanosis. Neurovascular intact. Full, normal range of motion. 12:16 Cardiovascular: Exam negative for acute changes, Rate: normal, Rhythm: regular, Pulses: no pulse deficits are appreciated, Edema: pedal edema, that is moderate. 12:16 Respiratory: the patient does not display signs of respiratory distress, Respirations: no acute changes, Breath sounds: decreased breath sounds, are located in both bases. 12:16 Abdomen/GI: Inspection: obese Palpation: abdomen is soft and non-tender. 12:16 Neuro: Exam negative for acute changes, Orientation: is normal, Mentation: is normal, Motor: is normal, moves all fours. Vital Signs: 09:22 BP 150 / 79; Pulse 66; Resp 24 S; Temp 98.3(O); Pulse Ox 94% on 2 lpm NC; Pain 0/10; aa5 11:33 BP 130 / 83; Pulse 71; Resp 22; Pulse Ox 96% on 2 lpm NC; aa5 11:55 BP 145 / 54; Pulse 78; Resp 24 S; Temp 98.2(O); Pulse Ox 93% on 2 lpm NC; aa5 13:00 BP 138 / 82; Pulse 72; Resp 24 S; Pulse Ox 95% on 2 lpm NC; aa5 14:00 BP 132 / 80; Pulse 72; Resp 22 S; Temp 98.0(O); Pulse Ox 94% on 2 lpm NC; aa5 MDM: 09:26 Patient medically screened. pm1 11:02 ED course: Patient does not feel any increased shortness of breath. Discussed diagnosis pm1 of CHF and findings on chest x-ray. Patient does not want to stay in the hospital. Therefore discussed need for a few days of extra diuretic and then follow up with PCP. 12:16 ED course: Talked to Daughter on the phone who was concerned that she took some pm1 hydrocodone. Requested UDS. Patient was acting abnormal talking to people that are not present. 12:53 Data reviewed: vital signs. Data interpreted: Pulse oximetry: on 2L(s) per nasal pm1 canula, is 96 %. Interpretation:. 13:00 Counseling: I had a detailed discussion with the patient and/or guardian regarding: the pm1 historical points, exam findings, and any diagnostic results supporting the discharge/admit diagnosis, lab results, radiology results, the need for further work-up and treatment in the hospital. 13:00 ED course: Patient with hypoxia when she is moving from the bed to the bedside commode. pm1 O2 sat 80% per nurse with NC. Patient with moderate CHF. Therefore will admit patient. 07/05 09:27 Order name: Basic Metabolic Panel; Complete Time: 10:36 pm1 07/05 09:27 Order name: CBC with Diff; Complete Time: 10:36 pm1 07/05 09:27 Order name: LFT's; Complete Time: 10:36 pm1 07/05 09:27 Order name: Magnesium; Complete Time: 10:36 pm1 07/05 09:27 Order name: NT PRO-BNP; Complete Time: 10:36 pm1 07/05 09:27 Order name: PT-INR; Complete Time: 10:08 pm1 07/05 09:27 Order name: Troponin (emerg Dept Use Only); Complete Time: 10:36 pm1 07/05 09:27 Order name: XRAY Chest (1 view); Complete Time: 10:51 pm1 07/05 09:59 Order name: CBC Smear Scan; Complete Time: 10:36 EDMS 07/05 12:12 Order name: UDS; Complete Time: 15:08 aa5 07/05 12:17 Order name: CT Head Brain wo Cont; Complete Time: 12:53 pm1 07/05 12:20 Order name: Urinalysis W/Microscopic EDMS 07/05 13:12 Order name: Urine Dipstick--Ancillary (enter results); Complete Time: 13:31 bd 07/05 09:27 Order name: EKG; Complete Time: 09:28 pm1 07/05 09:27 Order name: Cardiac monitoring; Complete Time: 10:18 pm07/05 09:27 Order name: EKG - Nurse/Tech; Complete Time: 10:18 pm07/05 09:27 Order name: IV Saline Lock; Complete Time: 10:19 pm07/05 09:27 Order name: Labs collected and sent; Complete Time: 10:19 pm07/05 09:27 Order name: O2 Per Protocol; Complete Time: 10:18 pm07/05 09:27 Order name: O2 Sat Monitoring; Complete Time: 10:18 pm07/05 12:12 Order name: Urine Dipstick-Ancillary (obtain specimen); Complete Time: 12:13 aa5 07/05 12:18 Order name: Diet 2 Gm Sodium; Complete Time: 12:19 aa5 Administered Medications: 11:41 Drug: Lasix 40 mg Route: IVP; Site: right hand; aa5 11:50 Follow up: Response: No adverse reaction aa5 15:19 Drug: Lasix 40 mg Route: IVP; Site: right hand; iw Disposition: 07/06 08:23 Co-signature as Attending Physician, John Paul Somers MD I agree with the assessment and izzy plan of care. Disposition: 07/05/20 14:16 Hospitalization ordered by Pankaj Herrmann for Observation. Preliminary diagnosis are Unspecified combined systolic (congestive) and diastolic (congestive) heart failure, Hypoxia. - Bed requested for Telemetry/MedSurg (observation). - Status is Observation. iw - Condition is Stable. - Problem is new. - Symptoms have improved. Signatures: Dispatcher [employer] EDVA Alfreda Salazar RN RN dw Anderson, Corey, MD MD cha Williams, Irene, RN RN Montse Granger RN RN aa5 Shawn Turk NP METER ENGINEER pm1 Corrections: (The following items were deleted from the chart) 07/05 12:20 12:12 URINALYSIS+U.LAB.BRZ ordered. EDVA EDVA 14:13 12:16 ED course: Talked to Daughter on the phone who was concerned that she took some pm1 hydrocodone. Requested UDS. pm1 15:18 14:16 Hospitalization Ordered by Pankaj Herrmann DO for Observation. Preliminary dw diagnosis is Unspecified combined systolic (congestive) and diastolic (congestive) heart failureHypoxia. Bed requested for Telemetry/MedSurg (observation). Status is Observation. Condition is Stable. Problem is new. Symptoms have improved. pm1 15:19 15:18 07/05/2020 14:16 Hospitalization Ordered by Pankaj Herrmann DO for Observation. dw Preliminary diagnosis is Unspecified combined systolic (congestive) and diastolic (congestive) heart failureHypoxia. Bed requested for Telemetry/MedSurg (observation). Status is Observation. Condition is Stable. Problem is new. Symptoms have improved. dw 15:20 15:19 07/05/2020 14:16 Hospitalization Ordered by Pankaj Herrmann DO for Observation. dw Preliminary diagnosis is Unspecified combined systolic (congestive) and diastolic (congestive) heart failureHypoxia. Bed requested for Telemetry/MedSurg (observation). Status is Observation. Condition is Stable. Problem is new. Symptoms have improved. dw 16:21 15:20 07/05/2020 14:16 Hospitalization Ordered by Pankaj Herrmann DO for Observation. iw Preliminary diagnosis is Unspecified combined systolic (congestive) and diastolic (congestive) heart failureHypoxia. Bed requested for Telemetry/MedSurg (observation). Status is Observation. Condition is Stable. Problem is new. Symptoms have improved. dw
[2020-07-05 15:02] LABS: Barbiturates NEGATIVE (NEGATIVE); Benzodiazepines NEGATIVE (NEGATIVE); Cocaine NEGATIVE (NEGATIVE); METHAMPHETAM NEGATIVE (NEGATIVE); Methadone NEGATIVE (NEGATIVE); Opiates NEGATIVE (NEGATIVE); Phencyclidine NEGATIVE (NEGATIVE); THC Cannibis NEGATIVE (NEGATIVE)
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
[2020-07-05] MEDS ORDERED: ONDANSETRON 4 MG/2 ML VIAL IV PRN (16:50)
[2020-07-05] MEDS ORDERED: HYDRALAZINE HCL 20 MG/ML VIAL IV PRN (16:50)
[2020-07-05] MEDS ORDERED: ALBUTEROL INHALER 60 PUFF/8 GM IH PRN (16:50)
[2020-07-05] MEDS ORDERED: ACETAMINOPHEN 500 MG TAB PO PRN (16:50)
[2020-07-05] MEDS: FUROSEMIDE 40 MG/4 ML VIAL IV SCH (17:00)
[2020-07-05] MEDS: ENOXAPARIN 40 MG/0.4 ML SQ SCH (17:31)
[2020-07-05 18:00] VITALS: BMI 6523.8
[2020-07-05] MEDS: predniSONE 20 MG TAB PO SCH (20:47)
[2020-07-05] MEDS: DULERA 100/5 (MOMETASONE/FORMOTEROL) INHALER IH SCH (20:47)
[2020-07-05] MEDS ORDERED: ALBUTEROL 2.5 MG/3 ML NEB SOL NEB PRN (21:22)
[2020-07-05 21:29] LABS: CKMB Creatine Kinase MB 3.9 ng/mL (0.3-3.6); Creatine Phosphokinase 317 U/L (26-192); Troponin I < 0.02 ng/mL (0.0-0.045)
[2020-07-06 00:54] LABS: Urine Appearance CLOUDY; Urine Bilirubin NEGATIVE (NEG); Urine Blood TRACE (NEG); Urine Color YELLOW; Urine Glucose NEGATIVE (NEG); Urine Protein NEGATIVE (NEG); Urine pH 5.5 (5.0-7.0)
[2020-07-06 01:36] LABS: Urine Bacteria >50 /HPF (<20); Urine Culture Reflex Order REFLEXED; Urine RBC NONE SEEN /HPF (NONE SEEN); Urine Urothelial Cells <5 /HPF (NONE SEEN)
[2020-07-06 06:01] LABS: Absolute Lymphocytes (CBC) 0.4 K/uL (0.7-4.9); Basophils % 0.4 % (0-1.3); Lymphocytes % 4.9 % (15.3-44.8); RBC Red Blood Cell Count 3.63 M/uL (3.86-4.86)
[2020-07-06 06:26] LABS: BUN Blood Urea Nitrogen 20 mg/dL (7-18); Bicarbonate 34 mmol/L (21-32); CKMB Creatine Kinase MB 3.9 ng/mL (0.3-3.6); Creatine Phosphokinase 390 U/L (26-192); Glucose Level 101 mg/dL (74-106); HDL Cholesterol 74 mg/dL (40-60); LDL Cholesterol, Calculated 52 (<130); Magnesium 2.2 mg/dL (1.8-2.4); Potassium 4.9 mmol/L (3.5-5.1); Sodium Level 137 mmol/L (136-145); Thyroid Stimulating Hormone 0.145 uIU/mL (0.360-3.740); Troponin I < 0.02 ng/mL (0.0-0.045)
[2020-07-06] MEDS ORDERED: PANTOPRAZOLE 40MG TABLET PO SCH (07:30)
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
[2020-07-06 08:54] VITALS: BP 153/68; TEMP 97.8
[2020-07-06] MEDS ORDERED: OSELTAMIVIR PHOSPHATE 30 MG/5 ML SUSPENSION UD PO SCH (09:00)
[2020-07-06] MEDS ORDERED: OSELTAMIVIR 75 MG CAP PO SCH (09:00)
[2020-07-06] MEDS: DULERA 100/5 (MOMETASONE/FORMOTEROL) INHALER IH SCH (09:00)
--- NOTE | 2020-07-06 09:13 | RAD REPORT ---
EXAM DESCRIPTION: [place] (2 Views)07/06/2020 9:07 am CLINICAL HISTORY: Shortness of breath COMPARISON: July 05 FINDINGS: Bilateral pulmonary opacities have partially resolved. Heart remains enlarged IMPRESSION: Partial resolution in CHF
[2020-07-06 09:37] VITALS: O2SAT 96
[2020-07-06] MEDS: predniSONE 20 MG TAB PO SCH (10:24)
[2020-07-06] MEDS: FUROSEMIDE 40 MG/4 ML VIAL IV SCH (10:24)
[2020-07-06] MEDS: ENOXAPARIN 40 MG/0.4 ML SQ SCH (10:25)
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
--- NOTE | 2020-07-07 05:56 | EKG ---
Test Date: 2020-07-05 Test Time: 09:29:32 Director Check: MARGARITA MEASUREMENT RESULTS: Intervals: Rate: 63 CT: 176 QRSD: 82 QT: 440 QTc: 450 [place]: P: 55 CT: 176 QRS: 34 T: 64 INTERPRETIVE STATEMENTS: Normal sinus rhythm ST abnormality, possible digitalis effect Abnormal ECG No previous ECG available for comparison Electronically Signed On 07-07-20 05:50:51 CDT by Leon Paul
== END 2020-07-06 11:22 | disposition home or self-care (01) ==
LOC: ER 09:11 → ERHOLD 14:46 → 2ND 15:56
PROVIDERS: ADMIT Family Medicine; ATTEND Family Medicine
DX: I11.0 Hypertensive heart disease with heart failure (principal); I50.33 Acute on chronic diastolic (congestive) heart failure; J10.81 Influenza due to other identified influenza virus with encephalopathy; R09.02 Hypoxemia; J44.9 Chronic obstructive pulmonary disease, unspecified; Z99.81 Dependence on supplemental oxygen; E89.0 Postprocedural hypothyroidism; E78.5 Hyperlipidemia, unspecified; F41.9 Anxiety disorder, unspecified; E83.51 Hypocalcemia; J30.2 Other seasonal allergic rhinitis; J34.2 Deviated nasal septum; G89.29 Other chronic pain; E66.9 Obesity, unspecified; Z68.30 Body mass index [BMI] 30.0-30.9, adult; Z85.850 Personal history of malignant neoplasm of thyroid; Z86.73 Personal history of transient ischemic attack (TIA), and cerebral infarction without residual deficits; Z91.81 History of falling; Z88.5 Allergy status to narcotic agent; Z88.8 Allergy status to other drugs, medicaments and biological substances; Z90.49 Acquired absence of other specified parts of digestive tract; Z20.828 Contact with and (suspected) exposure to other viral communicable diseases
CPT/HCPCS: 93005; 87040 ×2; 87088; 85025 ×2; 81001; 87086; 80048 ×2; 36415; 83735 ×2; 82550 ×2; 85610; 80061; 82947; 80076; 80307 ×8; 84443; 81003; 84484 ×3; 82553 ×2; 84439; 83880; 87804 ×2; 70450; 71045; 71046; 96374; 99285; U0003; J1940 ×4; J1650 ×2; G0378 ×3; J7512; J7606